=== PATIENT | male | born 1960 | race Two or more races ===

== ENCOUNTER 2024-02-04 11:31 | Emergency (ER) | payer MEDICAID ==
[~2024-02-04] VITALS: Ht 172.7 cm; Wt 68.0 kg
[~2024-02-04 11:31] MED LIST: AUG875T PO; CIPR1SUS8 OT; NAPR-957 PO
[2024-02-04 14:01] VITALS: BP 127/76; PULSE 95; RESP 16; TEMP 97.8; O2SAT 98
[2024-02-04] MEDS: KETOROLAC TROMETH 30 MG/ML 1ML VIAL IM ONE (14:23)
[2024-02-04] MEDS ORDERED: OFL50TS OT (15:13)
[2024-02-04] MEDS ORDERED: CIPR-173 PO (15:14)
== END 2024-02-04 15:27 | disposition home or self-care (01) ==
LOC: ER 11:31
DX: H60.92 Unspecified otitis externa, left ear (principal); Z79.899 Other long term (current) drug therapy
CPT/HCPCS: 70486; 96372; 99285; J1885

== ENCOUNTER 2024-02-11 12:58 | Emergency (ER) | payer MEDICAID ==
[~2024-02-11] VITALS: Ht 172.7 cm; Wt 73.0 kg
[~2024-02-11 12:58] MED LIST changes: +CIPR-173 PO; +OFL50TS OT
[2024-02-11] MEDS ORDERED: CIPR-173 PO (15:49)
[2024-02-11 16:01] VITALS: BP 125/74; PULSE 84; RESP 18; TEMP 98; O2SAT 98
== END 2024-02-11 16:02 | disposition home or self-care (01) ==
LOC: ER 12:58
DX: H60.92 Unspecified otitis externa, left ear (principal)